=== PATIENT | female | born 1995 | race Caucasian/White ===

== ENCOUNTER 2024-03-29 19:18 | Emergency (ER) | payer OTHER ==
[~2024-03-29] VITALS: Ht 165.1 cm; Wt 77.0 kg
[2024-03-29 19:27] VITALS: BP 130/78; PULSE 97; RESP 18; O2SAT 99
[2024-03-29 21:00] VITALS: TEMP 98.7
[2024-03-29] MEDS: ACETAMINOPHEN 325MG TABLET PO ONE (21:00)
== END 2024-03-29 23:18 | disposition home or self-care (01) ==
LOC: ER 19:18
DX: S89.82XA Other specified injuries of left lower leg, initial encounter (principal); X58.XXXA Exposure to other specified factors, initial encounter; Y93.89 Activity, other specified; Y92.89 Other specified places as the place of occurrence of the external cause; Y99.8 Other external cause status
CPT/HCPCS: 73564; 99283; Z7610; L1830